=== PATIENT | male | born 1960 | race African-American/Black ===

== ENCOUNTER 2019-12-07 08:38 | Emergency (ER) | payer SELFPAY ==
[~2019-12-07] VITALS: Ht 180.3 cm; Wt 79.4 kg
--- NOTE | 2019-12-07 08:39 | NUR ---
ED Nurse Note: Patient brought in by ambulance from bus. Patient passed out "couple of times lasted for 5 min" per business reporter. Reports no trauma. Patient awake, alert, oriented x 4. Able to follow commands. Regular, unlabored breathing noted. Per EMS, patient has lightheadness before getting on the bus and recently has had flu-like symptoms. Placed patient on child monitor.
[2019-12-07 09:12] VITALS: BP 124/67
[2019-12-07 09:25] LABS: HEMATOCRIT 42.8 % (42.0-52.0); MEAN CORPUSCULAR VOLUME 87 FL (80-99); PLATELET COUNT 150 K/UL (150-450); RED BLOOD COUNT 4.92 M/UL (4.70-6.10); RED CELL DISTRIBUTION WIDTH 12.2 % (11.6-14.8)
--- NOTE | 2019-12-07 09:44 | NUR ---
ED Nurse Note: Patient sleeping in bed in semi-roblero position. IV fluid running via left AC 20g remained intact without redness, swelling or pain.
[2019-12-07 10:00] LABS: ANION GAP 12 mmol/L (5-15); BLOOD UREA NITROGEN 16 mg/dL (7-18); CALCIUM 7.8 MG/DL (8.5-10.1); CARBON DIOXIDE 25 MMOL/L (21-32); CHLORIDE 97 MMOL/L (98-107); CREATININE 1.5 MG/DL (0.55-1.30); POTASSIUM 3.4 MMOL/L (3.5-5.1); SODIUM 134 MMOL/L (136-145)
[2019-12-07 10:07] LABS: ALANINE AMINOTRANSFERASE 27 U/L (12-78); ALBUMIN 3.2 G/DL (3.4-5.0); ALBUMIN/GLOBULIN RATIO 0.8 (1.0-2.7); ALKALINE PHOSPHATASE 73 U/L (46-116); ASPARTATE AMINO TRANSFERASE 38 U/L (15-37); BILIRUBIN,TOTAL 0.4 MG/DL (0.2-1.0); CREATINE KINASE 671 U/L (26-308)
[2019-12-07 11:06] VITALS: BP 148/86
[2019-12-07 13:12] VITALS: BP 155/76
--- NOTE | 2019-12-07 13:15 | NUR ---
ED Nurse Note: Patient is leaving against medical advisce. Patient states "I have so much things to do. I can't stay" "I understand the risk" Patient awake, alert, oriented x 4. Able to follow commands. Patient wants to leave the hospital at this time. Dr. Menon notified and informed. Dr. Menon also explained the risk of leaving the hospital against medical advice. Patient verbalized understanding of it. Ambulated out with steady gait with all his belongings.
--- NOTE | 2019-12-07 13:49 | Diagnostic Imaging Report ---
Indication: Dyspnea Comparison: None A single view chest radiograph was obtained. Findings: Cardiomediastinal appearance is within normal limits for age. The lungs are clear. Pulmonary vascularity is appropriate. The diaphragmatic contour is smooth and costophrenic angles are sharp. No pleural effusions are identified. The bones are unremarkable. Impression: No acute findings
--- NOTE | 2019-12-07 14:47 | Emergency Room Report ---
History of Present Illness General Chief Complaint: Syncope Source: Patient Present Illness HPI Patient presents with reports of syncopal episode reports that he has been ill for the past several days with flu symptoms Cough congestion and runny nose Patient was on the bus today and reports that he was started to feel lightheaded And describes a lapse of consciousness with syncopal episode He reports that this is happened to her one time before Denies any neck pain denies any chest pain or shortness of breath denies any vomiting or diarrhea denies any recent travel Allergies: Coded Allergies: No Known Allergies (Unverified , 12/07/19) Patient History Past Medical History: see triage record Reviewed Nursing Documentation: PMH: Agreed; PSxH: Agreed Nursing Documentation-PMH Past Medical History: No History, Except For Hx Hypertension: Yes Review of Systems All Other Systems: negative except mentioned in HPI Physical Exam Vital Signs Date Time Temp Pulse Resp B/P (MAP) Pulse Ox O2 Delivery O2 Flow Rate FiO2 12/07/19 08:31 98.6 94 18 159/96 (117) 99 Room Air Sp02 EP Interpretation: reviewed, normal General Appearance: well appearing, no apparent distress Head: normocephalic, atraumatic Eyes: bilateral eye PERRL, bilateral eye EOMI ENT: hearing grossly normal, TMs + canals normal, uvula midline, dry mucus membranes Neck: full range of motion, supple, no meningismus, no bony tend Respiratory: lungs clear, normal breath sounds, no rhonchi, no respiratory distress, no retraction, no accessory muscle use Cardiovascular #1: normal peripheral pulses, regular rate, rhythm, no edema, no gallop, no JVD, no murmur Gastrointestinal: normal bowel sounds, non tender, soft, no mass, no organomegaly, non-distended, no guarding, no hernia, no pulsatile mass, no rebound Genitourinary: no CVA tenderness Musculoskeletal: normal inspection Neurologic: motor strength/tone normal, parquetry layer III-XII nml as tested, oriented x3 , sensory intact, responsive Psychiatric: mood/affect normal Skin: no rash Lymphatic: normal inspection, no adenopathy Medical Decision Making Diagnostic Impression: Primary Impression: Syncope ER Course Patient is a fairly complex patient with multiple differential to consideration including but not limited to cardiac cardiopulmonary and vascular emergencies Patient also clinically appears dehydrated and IV hydration was provided Patient's blood work shows increased total CK patient requires further hydration Given the lapse of consciousness and the patient's presentation he does require further inpatient care however at this time he is refusing further inpatient hospitalization He is aware that this can lead to worsening symptoms and possible patient is in full decision-making capacity Leaving AGAINST MEDICAL ADVICE Labs Test 12/07/19 09:00 White Blood Count 12.0 K/UL (4.8-10.8) Red Blood Count 4.92 M/UL (4.70-6.10) Hemoglobin 15.0 G/DL (14.2-18.0) Hematocrit 42.8 % (42.0-52.0) Mean Corpuscular Volume 87 FL (80-99) Mean Corpuscular Hemoglobin 30.4 PG (27.0-31.0) Mean Corpuscular Hemoglobin Concent 35.0 G/DL (32.0-36.0) Red Cell Distribution Width 12.2 % (11.6-14.8) Platelet Count 150 K/UL (150-450) Mean Platelet Volume 7.1 FL (6.5-10.1) Neutrophils (%) (Auto) % (45.0-75.0) Lymphocytes (%) (Auto) % (20.0-45.0) Monocytes (%) (Auto) % (1.0-10.0) Eosinophils (%) (Auto) % (0.0-3.0) Basophils (%) (Auto) % (0.0-2.0) Differential Total Cells Counted 100 Neutrophils % (Manual) 93 % (45-75) Lymphocytes % (Manual) 6 % (20-45) Monocytes % (Manual) 1 % (1-10) Eosinophils % (Manual) 0 % (0-3) Basophils % (Manual) 0 % (0-2) Band Neutrophils 0 % (0-8) Platelet Estimate Adequate Platelet Morphology Normal Red Blood Cell Morphology Normal Sodium Level 134 MMOL/L (136-145) Potassium Level 3.4 MMOL/L (3.5-5.1) Chloride Level 97 MMOL/L (98-107) Carbon Dioxide Level 25 MMOL/L (21-32) Anion Gap 12 mmol/L (5-15) Blood Urea Nitrogen 16 mg/dL (7-18) Creatinine 1.5 MG/DL (0.55-1.30) Estimat Glomerular Filtration Rate 47.7 mL/min (>60) Glucose Level 127 MG/DL (74-106) Calcium Level 7.8 MG/DL (8.5-10.1) Total Bilirubin 0.4 MG/DL (0.2-1.0) Aspartate Amino Transf (AST/SGOT) 38 U/L (15-37) Alanine Aminotransferase (ALT/SGPT) 27 U/L (12-78) Alkaline Phosphatase 73 U/L (46-116) Total Creatine Kinase 671 U/L (26-308) Troponin I 0.000 ng/mL (0.000-0.056) Total Protein 7.3 G/DL (6.4-8.2) Albumin 3.2 G/DL (3.4-5.0) Globulin 4.1 g/dL Albumin/Globulin Ratio 0.8 (1.0-2.7) Lipase 123 U/L (73-393) EKG Diagnostic Results Rate: normal Rhythm: NSR ST Segments: no acute changes Rhythm Strip Diag. Results EP Interpretation: yes Rate: 77 Rhythm: NSR, no PVC's, no ectopy Chest X-Ray Diagnostic Results Chest X-Ray Diagnostic Results : Chest X-Ray Ordered: Yes # of Views/Limited/Complete: 1 View Indication: Chest Pain EP Interpretation: Yes Interpretation: no consolidation, no effusion, no pneumothorax Impression: No acute disease Electronically Signed by: Annetta Menon DO Last Vital Signs Date Time Temp Pulse Resp B/P (MAP) Pulse Ox O2 Delivery O2 Flow Rate FiO2 12/07/19 13:12 72 16 155/76 99 Room Air 12/07/19 08:31 98.6 Status: improved Disposition: AGAINST MEDICAL ADVICE Condition: Improved Referrals: NOT CHOSEN IPA/MD,REFERRING (PCP) Patient Instructions: Syncope Additional Instructions: It was recommended for you to stay in the hospital for further evaluation and testing. At this time you are choosing to leave the hospital against advice this can lead to worsening symptoms and possible . Please return to the ER if you change your mind Annetta Menon DO Dec 07, 2019 14:47
== END 2019-12-07 13:15 | disposition left against medical advice (07) ==
LOC: EDBD 08:38 → EMR 12:00 → CANBEDREQ 13:02 → EMR 13:15
DX: R55 Syncope and collapse (principal); I10 Essential (primary) hypertension
CPT/HCPCS: 36415; 71045; 80053; 82550; 83690; 84484; 85007; 85025; 93005; 96360; 99284; J7030